=== PATIENT | female | born 1985 | race Hispanic/Latino ===

== ENCOUNTER 2018-03-09 09:47 | Emergency (ER) | payer MEDICAID, OTHER ==
[2018-03-09 10:03] VITALS: BP 110/83
[2018-03-09] MEDS ORDERED: NORCO 5/325 PO ONE (10:53)
--- NOTE | 2018-03-09 10:54 | Emergency Department Report ---
ED General Adult HPI - General Chief complaint: Dyspnea/Respdistress Stated complaint: CHEST PAIN,SHORT OF BREATH Time Seen by Provider: 03/09/18 10:30 Source: patient Mode of arrival: Ambulatory Limitations: No Limitations - History of Present Illness Initial comments: Patient is a 32-year-old female who is presenting with cough, congestion for approximately a week. Patient states initially the cough is nonproductive however last night patient started to have some bloody sputum. Patient states that there is also some associated left-sided chest discomfort especially with deep breathing. Patient states is a sharp pain. Patient's pain is 6 out of 10 in severity. Patient denies any fevers chills nausea vomiting or diarrhea at this time. - Related Data Previous Rx's Medication Instructions Recorded Last Taken Type Sulfamethoxazole/Trimethoprim 1 each PO BID #14 tablet 03/18/16 Unknown Rx [Bactrim DS TAB] traMADol [Ultram] 50 mg PO Q6HR PRN #10 tablet 03/18/16 Unknown Rx ALBUTEROL Inhaler [ProAir HFA 2 puff IH QID PRN #1 inhalation 03/09/18 Unknown Rx Inhaler] Azithromycin [Zithromax Z-KAYLA] 250 mg PO DAILY 5 Days #6 tablet 03/09/18 Unknown Rx Benzonatate [Tessalon Perles] 100 mg PO Q8HR #10 capsule 03/09/18 Unknown Rx HYDROcodone/APAP 5-325 [[place] 1 each PO Q6HR PRN #12 tablet 03/09/18 Unknown Rx 5/325] predniSONE [Deltasone] 20 mg PO QDAY #5 tab 03/09/18 Unknown Rx Allergies Allergy/AdvReac Type Severity Reaction Status Date / Time codeine Allergy Shortness Verified 03/30/15 14:05 of Breath ED Review of Systems ROS: Stated complaint: CHEST PAIN,SHORT OF BREATH Other details as noted in HPI Comment: All other systems reviewed and negative ED Past Medical Hx - Past Medical History Previous Medical History?: No - Surgical History Hx Cholecystectomy: Yes Additional Surgical History: tonsillectomy - Social History Smoking Status: Current Every Day Smoker Substance Use Type: None - Medications Home Medications: Home Medications Medication Instructions Recorded Confirmed Last Taken Type Sulfamethoxazole/Trimethoprim 1 each PO BID #14 tablet 03/18/16 Unknown Rx [Bactrim DS TAB] traMADol [Ultram] 50 mg PO Q6HR PRN #10 tablet 03/18/16 Unknown Rx ALBUTEROL Inhaler [ProAir HFA 2 puff IH QID PRN #1 inhalation 03/09/18 Unknown Rx Inhaler] Azithromycin [Zithromax Z-KAYLA] 250 mg PO DAILY 5 Days #6 tablet 03/09/18 Unknown Rx Benzonatate [Tessalon Perles] 100 mg PO Q8HR #10 capsule 03/09/18 Unknown Rx HYDROcodone/APAP 5-325 [[place] 1 each PO Q6HR PRN #12 tablet 03/09/18 Unknown Rx 5/325] predniSONE [Deltasone] 20 mg PO QDAY #5 tab 03/09/18 Unknown Rx ED Physical Exam - General Limitations: No Limitations General appearance: alert, in no apparent distress - Head Head exam: Present: atraumatic, normocephalic - Eye Eye exam: Present: normal appearance - ENT ENT exam: Present: mucous membranes moist - Neck Neck exam: Present: normal inspection - Respiratory Respiratory exam: Present: normal lung sounds bilaterally. Absent: respiratory distress, wheezes, rales, rhonchi, chest wall tenderness, accessory muscle use - Cardiovascular Cardiovascular Exam: Present: regular rate, normal rhythm. Absent: systolic murmur, diastolic murmur, rubs, gallop - GI/Abdominal GI/Abdominal exam: Present: soft, normal bowel sounds. Absent: distended, tenderness, guarding - Extremities Exam Extremities exam: Present: normal inspection - Back Exam Back exam: Present: normal inspection - Neurological Exam Neurological exam: Present: alert, oriented X3 - Psychiatric Psychiatric exam: Present: normal affect, normal mood - Skin Skin exam: Present: warm, dry, intact, normal color. Absent: rash ED Course Vital Signs 03/09/18 09:59 Temperature 98.7 F Pulse Rate 92 H Respiratory 19 Rate Blood Pressure 110/83 O2 Sat by Pulse 97 Oximetry ED Medical Decision Making - Lab Data Labs 03/09/18 11:18 D-Dimer < 135.00 - EKG Data -: EKG Interpreted by Me EKG shows normal: sinus rhythm, axis, intervals, QRS complexes, ST-T waves Rate: normal - EKG Data Interpretation: normal EKG 03/09/18 12:21 Time of interpretation was 1010 - Radiology Data interpreted by me: Chest x-ray shows no acute process - Medical Decision Making Patient ruled out for PE and there is no pneumonia present on chest x-ray. The patient most likely has acute bronchitis. Because of the duration of the patient's symptoms patient will be started on antibiotics and also given meds for symptomatic relief. Patient be discharged home with this time. Critical care attestation.: If time is entered above; I have spent that time in minutes in the direct care of this critically ill patient, excluding procedure time. ED Disposition Clinical Impression: Acute bronchitis Qualifiers: Bronchitis organism: unspecified organism Qualified Code(s): J20.9 - Acute bronchitis, unspecified Disposition: DC-01 TO HOME OR SELFCARE Is pt being admited?: No Does the pt Need Aspirin: No Condition: Stable Instructions: Acute Bronchitis (ED) Referrals: PRIMARY CARE, [Primary Care Provider] - 3-5 Days
--- NOTE | 2018-03-09 11:56 | XRay Report ---
ROUTINE CHEST, TWO VIEWS: HISTORY: Productive cough, bloody sputum. The trachea, heart, mediastinal contour, lung watson and bony thorax are unremarkable. IMPRESSION: Unremarkable chest x-ray.
== END 2018-03-09 12:42 | disposition home or self-care (01) ==
LOC: ED 09:47
DX: J20.9 Acute bronchitis, unspecified (principal); F17.200 Nicotine dependence, unspecified, uncomplicated; Z90.89 Acquired absence of other organs; Z90.49 Acquired absence of other specified parts of digestive tract; Z88.4 Allergy status to anesthetic agent
CPT/HCPCS: 36415; 71046; 85379; 93005; 93010